=== PATIENT | female | born 1950 | race African-American/Black ===

== ENCOUNTER → 2020-04-28 | Outpatient (CLI) | payer OTHER, BC ==
[~2020-04-28] VITALS: Ht 172.7 cm; Wt 72.6 kg
[~2020-04-28] MED LIST: BACLOFEN 10MG T10 M1 PO; BACLOFEN 10MG T10 MG PO; CALCIUM500 MG PO; LEVAQUIN 500 M500 M2 PO; MULTI VITAMIN1 EACH PO; NEXIUM40 MG PO; NORVASC 5 MG TAB5 MG PO; NORVASC5 M1 PO; NUCYNTA50 MG PO; PREMARIN0.625 MG PO; VITAMIN E1000 UNIT PO; ZOCOR80 MG PO
--- NOTE | 2020-04-29 13:37 | P ---
[facility] [place] [address] PROCEDURE REPORT Name: BRETT LEYVA Room #: REG [facility]#: [id number] Admission: 04/28/20 Attend Phys: Bruno Ross MD Discharge: Date of : 54 Report #: [id number] THIS REPORT FOR: cc: Ryan Renteria MD Physician not on staff Bruno Ross MD ~ CC: Bruno Sheth MD Physician staff DATE OF SERVICE: 04/28/2020 BRIEF HISTORY: The patient is a 69-year-old woman who reports increasing reflux symptoms on H2 elvira therapy. In spite of taking H2 blockers, she has yeni regurgitation and also sore throat. She does not have any symptoms of dysphagia. PREOPERATIVE DIAGNOSIS: Increasing reflux symptoms on therapy. POSTOPERATIVE DIAGNOSES: 1. Grade A erosive esophagitis. 2. Moderate antral gastritis. 3. Bulbar duodenitis without ulcer. MEDICATIONS: Deep sedation with propofol per Anesthesia. SPECIMEN: Biopsies of gastritis. ESTIMATED BLOOD LOSS: 3 mL. PROCEDURE: EGD with biopsy. FINDINGS: Prior to propofol sedation, procedure of upper endoscopy discussed with the patient as well as potential risks and its complications. She indicates she understands and desires to proceed. DESCRIPTION OF PROCEDURE: With the patient in left lateral decubitus position, the Olympus video endoscope was inserted in the cervical esophagus under direct vision without difficulty. Examination of this organ through its entire style length revealed normal esophageal mucosa down the squamocolumnar junction. Squamocolumnar junction was inspected. No evidence of ulcers or erosions. There was no evidence of Fuller's mucosa, strictures, masses or significant hiatus hernia. However, a few erosions were seen along the squamocolumnar junction consistent with grade A erosive esophagitis. The scope advanced easily in the stomach, was examined on end view as well as retroflexed views. [facility] [address] [place] [address] PROCEDURE REPORT Name: BRETT LEYVA Dennys Room #: [facility]#: [id number] Admission: 04/28/20 Attend Phys: Bruno Ross MD Discharge: Date of : 54 Report #: [id number] Examination of the proximal stomach on end view as well as retroflexed views revealed normal mucosa. However, examination of the distal stomach revealed moderate patchy gastritis without ulcers. There is no evidence of bleeding. The pylorus was unremarkable. Examination of duodenal bulb revealed patchy bulbar duodenitis. Postbulbar duodenal sweep was inspected to be unremarkable. At that point, the scope was slowly withdrawn and careful circumferential views confirmed the above findings. The patient tolerated the procedure well. CONDITION OF THE PATIENT UPON DISCHARGE: Following procedure, the patient drowsy, will be discharged home when fully ambulatory. INSTRUCTIONS TO THE PATIENT AND FAMILY AT THE TIME OF DISCHARGE: She is failing on H2 elvira therapy. She does have esophagitis, but other issues such as a hiatus hernia or Fuller's mucosa were not identified. We will follow up on biopsies. We will have her switch to omeprazole 20 mg daily, half hour before food for 6-8 weeks and then may reduce as tolerated. If she has continued symptoms, she is to return for followup in the office. Proceed with colonoscopy at this time. <ELECTRONICALLY SIGNED> By: Bruno Ross MD 04/29/20 1337 [id number] Bruno Ross MD /nt
--- NOTE | 2020-04-29 13:37 | P ---
[facility] [place] [address] PROCEDURE REPORT Name: BRETT LEYVA Room #: REG [facility]#: [id number] Admission: 04/28/20 Attend Phys: Bruno Ross MD Discharge: Date of : 54 Report #: [id number] THIS REPORT FOR: cc: Ryan Renteria MD Physician not on staff Bruno Ross MD ~ CC: Dr. Selena Lr MD Physician staff DATE OF SERVICE: 04/28/2020 BRIEF HISTORY: The patient is a 69-year-old woman with intermittent rectal bleeding for more than a year. Last colonoscopy was 7-8 years ago. PREOPERATIVE DIAGNOSIS: Intermittent rectal bleeding. POSTOPERATIVE DIAGNOSIS: Diminutive polyps x 2. MEDICATIONS: Deep sedation with propofol per anesthesia. SPECIMENS: 1. Polyp from 40 cm. 2. Polyp from 20 cm. ESTIMATED BLOOD LOSS: 3 mL. PROCEDURE: Colonoscopy to cecum and terminal ileum with biopsy. FINDINGS: Prior to propofol sedation, procedure of colonoscopy discussed with the patient, all potential risks and its complications. She indicates she understands and desires to proceed. DESCRIPTION OF PROCEDURE: With the patient in left lateral decubitus position, digital examination was completed, which revealed no abnormalities. Subsequently, the Olympus video colonoscope was introduced into the rectum, advanced under direct vision to the cecum, done with minimal difficulty. The cecum was identified by the ileocecal valve and the appendiceal orifice. I was able to visualize the distal segment of terminal ileum, which was inspected and noted to be unremarkable. At that point, the scope was slowly withdrawn and careful circumferential views were obtained. Upon slow withdrawal of the scope, the prep was excellent. The mucosa was within normal limits, normal vascular pattern, normal light reflex. As we withdrew the scope, she was noted to have normal mucosa throughout the entire colon until we reached about [address] [facility] [address] [place] [address] PROCEDURE REPORT Name: BRETT LEYVA Dennys Room #: REG [facility]#: [id number] Admission: 04/28/20 Attend Phys: Bruno Ross MD Discharge: Date of : 54 Report #: [id number] point a diminutive polyp was seen. It was only several millimeters in size, removed with biopsy forceps. The scope was further withdrawn and no additional abnormalities were noted until about 20 cm, at which point, another diminutive polyp was seen and removed with biopsy. The scope was further withdrawn and at 20 cm, another diminutive polyp was seen, it was at the close proximity of a large scar from previous intervention. The scar was unremarkable without evidence of neoplastic change. In the same vicinity, a diminutive polyp was seen and removed with biopsy forceps. Scope was further withdrawn, no additional abnormalities were seen. Scope was withdrawn in the rectum, no abnormalities were seen. Upon retroflexion, no abnormalities were seen. No source of bleeding was seen. Scope was withdrawn. The patient tolerated the procedure well. CONDITION OF THE PATIENT UPON DISCHARGE: Following procedure, the patient drowsy, will be discharged home when fully ambulatory. INSTRUCTIONS TO THE PATIENT AND FAMILY AT THE TIME OF DISCHARGE: We will follow up on pathology and make further recommendations. If one or both polyps are adenomas, return in 5 years; if not an adenoma then 10 years would be indicated. She has seen red blood per rectum. I do not see evidence of significant bleeding lesions. I suspect the blood is coming from the anal canal. She does have difficulty with straining due to pelvic floor dysfunction, which has been a long-term problem for her. That may be the culprit as far as her bleeding. Withdrawal time from the cecum was 10 minutes 33 seconds. <ELECTRONICALLY SIGNED> By: Bruno Ross MD 04/29/20 1337 [id number] Bruno Ross MD /nt
--- NOTE | 2020-04-29 17:15 | PATH ---
[facility] [place] [address] PATHOLOGY RPT PROCEDURE Name: BRETT LEYVA Dennys Room #: REG [facility] Courtney.#: [id number] Admission: 04/28/20 Date of : 54 Discharge: Report #: [id number] Path Case #: [id number] [facility] Accession Number: [id number] . 01 Material submitted: . PART A: stomach - BX OF GASTRITIS PART B: colon - POLYP AT 40CM PART C: colon - POLYP AT 20CM . 01 Clinical history: . Reflux, rectal bleeding Gastritis, esophagitis, colon polyps Rule H. pylori . 02 Diagnosis: A. Gastric mucosa, gastritis rule out H. pylori, endoscopic biopsy: - Mild reactive gastropathy. - Negative for intestinal metaplasia or atrophy. - Negative for Helicobacter pylori (properly-controlled immunohistochemical stain performed). . B. Polyp, at 40 cm, endoscopic biopsy: - Tubular adenoma. - Negative for high grade dysplasia. . C. Polyp, at 20 cm, endoscopic biopsy: - Hyperplastic polyp. - Negative for dysplasia. . (IUV:mml; 04/29/2020) QL 04/29/2020 1155 Local . 02 Electronically signed: . Ni Dunbar MD, Pathologist NPI- [id number] . 01 Gross description: . A. The specimen is received in formalin, labeled "Brett Leyva, BX of gastritis" and consists of 2 fragments of pink-mike tissue measuring 0.6 x 0.3 cm and 0.7 x 0.3 cm which are entirely submitted in A1. . B. The specimen is received in formalin, labeled "Brett Leyva, polyp at 40 cm" and consists of 2 fragments of pink-mike tissue measuring 0.4 x 0.2 cm and 0.3 x 0.1 cm which are entirely submitted in B1. . C. The specimen is received in formalin, labeled "Brett Leyva, polyp at 20 cm" and consists of 2 fragments of pink-mike tissue measuring 0.[address] [address] PATHOLOGY RPT PROCEDURE Name: BRETT LEYVA Room #: REG [facility]#: [id number] Admission: 04/28/20 Date of : 54 Discharge: Report #: [id number] Path Case #: [id number] 0.2 cm and 0.5 x 0.3 cm which are entirely submitted in C1. (SDY; 04/28/2020) SYU/SYU 04/28/2020 1613 Local . 02 Pathologist provided ICD-10: K31.9, D12.6, K63.5 . 02 CPT . 117163, 380732, [id number], [id number] Specimen Comment: A courtesy copy of this report has been sent to [phone], [phone] Specimen Comment: [facility], Specimen Comment: Report sent to ,DR BLANTON / DR MONTILLA Performed at: [address], [place], [place] [id number] MD Rodney Manning MD Phone: [phone] Performed at: [address] [id number] MD Ni Dunbar MD Phone: [phone]
== END | disposition home or self-care (01) ==
LOC: GI 08:15
PROVIDERS: ATTEND Specialist
DX: K62.5 Hemorrhage of anus and rectum (principal); D12.5 Benign neoplasm of sigmoid colon; K31.9 Disease of stomach and duodenum, unspecified; K21.9 Gastro-esophageal reflux disease without esophagitis; K22.10 Ulcer of esophagus without bleeding; K29.70 Gastritis, unspecified, without bleeding; K29.80 Duodenitis without bleeding; I10 Essential (primary) hypertension; E11.9 Type 2 diabetes mellitus without complications; E78.5 Hyperlipidemia, unspecified; M79.7 Fibromyalgia; Z11.59 Encounter for screening for other viral diseases; Z98.890 Other specified postprocedural states; Z79.899 Other long term (current) drug therapy; Z90.710 Acquired absence of both cervix and uterus; Z87.891 Personal history of nicotine dependence; Z85.830 Personal history of malignant neoplasm of bone; Z88.0 Allergy status to penicillin; Z88.2 Allergy status to sulfonamides
CPT/HCPCS: 62110; 62900